=== PATIENT | female | born 1990 | race Caucasian/White ===

== ENCOUNTER → 2016-08-21 | Outpatient (CLI) | payer MEDICAID | LOC: MW.CHOBGYN 13:48 | PROVIDERS: ATTEND Nurse Practitioner Women's Health | DX: N92.6 Irregular menstruation, unspecified (principal) | CPT/HCPCS: 36415; 84702 ==

== ENCOUNTER → 2016-08-26 | Outpatient (CLI) | payer MEDICAID | LOC: MW.CHOBGYN 10:42 | PROVIDERS: ATTEND Nurse Practitioner Women's Health | DX: O26.899 Other specified pregnancy related conditions, unspecified trimester (principal); E53.8 Deficiency of other specified B group vitamins | CPT/HCPCS: 36415; 82607; 84702 ==

== ENCOUNTER 2017-08-19 06:33 | Inpatient (IN) | payer BC ==
[2017-08-19] MEDS ORDERED: Terbutaline 1 MG/ML SDV SUBCUT PRN (06:42)
[2017-08-19] MEDS ORDERED: Methylergonovine 0.2 MG/1 ML Amp IM PRN (06:42)
[2017-08-19] MEDS ORDERED: Lidocaine 1% 50 ML MDV INJECT PRN (06:42)
[2017-08-19] MEDS ORDERED: Tranexamic Acid 1,000 MG in Sodium Chloride 0.9% 100 ML IV PRN (06:42)
[2017-08-19] MEDS ORDERED: Water For Irrigation,Sterile 1,000 ML Container IRR PRN (06:42)
[2017-08-19] MEDS ORDERED: Sodium Chloride 0.9% 10 ML Syringe FLUSH PRN (06:42)
[2017-08-19] MEDS ORDERED: Butorphanol 1 MG/ML SDV IVPUSH PRN (06:42)
[2017-08-19] MEDS ORDERED: Carboprost Tromethamine 250 MCG/1 ML Amp IM PRN (06:42)
[2017-08-19] MEDS ORDERED: Misoprostol 200 MCG Tab PO PRN (06:42)
[2017-08-19] MEDS ORDERED: Sodium Chloride 0.9% 2.5 ML Syringe FLUSH PRN (06:42)
[2017-08-19] MEDS ORDERED: Lactated Ringers 1,000 ML IV SCH (06:45)
[2017-08-19] MEDS ORDERED: Oxytocin/0.9 % Sodium Chloride 30 UNIT/500 ML BAG IV SCH ×2 (06:45)
--- NOTE | 2017-08-19 08:21 | PCM.LDHP ---
L&D History of Present Illness - General Date of Service: 08/19/17 Admit Problem/Dx: Patient Status Order with Admit Dx/Problem 08/19/17 06:42 Patient Status [ADT] Routine Admission Diagnosis/Problem Admission Diagnosis/Problem 08/19/17 08:16 26 yo EDC by LMP 08/24/2017, making her 39 2/7, reported to be a girl. B+ , R-equivocal/ GBS neg. IOL due to history of rapid labor Source of Information: Patient History Limitations: Reports: No Limitations - History of Present Illness Improves with: Reports: None Worsens with: Reports: None Associated Symptoms: Reports: N - Related Data Allergies/Adverse Reactions: Allergies Allergy/AdvReac Type Severity Reaction Status Date / Time No Known Allergies Allergy Verified 08/02/13 09:39 Home Medications: Home Meds Vit W-Ca,Fe,FA(<1 mg) [ Vitamins] 1 each PO DAILY 08/19/17 [ History] Past Medical History - Past Health History Medical/Surgical History: Denies Medical/Surgical History HEENT History: Reports: Impaired Vision Genitourinary History: Reports: Renal Calculus [employer] History: Reports: , Spontaneous Musculoskeletal History: Reports: RA Hematologic History: Reports: Anemia - Infectious Disease History Infectious Disease History: Reports: Chicken Pox - Past Surgical History HEENT Surgical History: Reports: None Female Surgical History: Reports: None Social & Family History - Family History HEENT: Reports: Impaired Vision Respiratory: Reports: Asthma : Reports: Renal Calculus OBGYN: Reports: Musculoskeletal: Reports: Fibromyalgia, Osteoarthritis Endocrine/Metabolic: Reports: Diabetes, type II Other Endocrine/Metabolic Family History: Patient's grandmother and sister have had thyroidectomy surgery. Oncologic: Reports: Lung - Tobacco Use Smoking Status *Q: Never Smoker Years of Tobacco use: 5 Used Tobacco, but Quit: Yes Month/Year Tobacco Last Used: jan Second Hand Smoke Exposure: Yes - Alcohol Use Days Per Week of Alcohol Use: 0 - Recreational Drug Use Recreational Drug Use: No H&P Review of Systems - Review of Systems: Review Of Systems: See Below General: Reports: No Symptoms HEENT: Reports: No Symptoms Pulmonary: Reports: No Symptoms Cardiovascular: Reports: No Symptoms Gastrointestinal: Reports: No Symptoms Genitourinary: Reports: No Symptoms Musculoskeletal: Reports: No Symptoms Skin: Reports: No Symptoms Psychiatric: Reports: No Symptoms Neurological: Reports: No Symptoms Hematologic/Lymphatic: Reports: No Symptoms Immunologic: Reports: No Symptoms L&D Exam - Exam Exam: See Below - Vital Signs Weight: 156 kg - OB Specific Contraction Intensity: Mild Movement: Active Heart Tones: Present (150) Heart Tones per Min: 150 Heart Rate (FHR) Variability: Moderate (6-25 bmp) Presentation: Vertex Estimated Weight: 3300 - Francisco Score Francisco Score Cervix Position: Posterior Francisco Score Consistency: Soft Francisco Score Effacement: >80% Francisco Score Dilation: > 5 cm Francisco Score 's Station: -2 Francisco Score Total: 9 - Exam General: Alert, Oriented, Cooperative HEENT: Hearing Intact Lungs: Normal Respiratory Effort GI/Abdominal Exam: Soft, Non-Tender (good movement), No Organomegaly ( gravid) Rectal Exam: Deferred Genitourinary: Normal external exam, Normal bimanual exam, Cervical dilitation Back Exam: Normal Inspection, Full Range of Motion Extremities: Normal Inspection, Normal Range of Motion, Non-Tender, Normal Capillary Refill, Pedal Edema Skin: Warm, Dry, Intact Neurological: Cranial Nerves Intact, Reflexes Equal Bilateral, Strength Equal Bilateral, Normal Speech, Normal Tone Psychiatric: Alert, Normal Affect, Normal Mood - Patient Data Lab Results Last 24 hrs: Laboratory Results - last 24 hr 08/19/17 08/19/17 Range/Units 07:04 07:04 WBC 11.61 H (4.0-11.0) K/uL RBC 4.09 L (4.30-5.90) M/uL Hgb 8.6 L (12.0-16.0) g/dL Hct 28.6 L (36.0-46.0) % MCV 69.9 L (80.0-98.0) fL MCH 21.0 L (27.0-32.0) pg MCHC 30.1 L (31.0-37.0) g/dL RDW Std Deviation 42.4 (28.0-62.0) fl RDW Coeff of Oneal 17 H (11.0-15.0) % Plt Count 254 (150-400) K/uL MPV 9.90 (7.40-12.00) fL Nucleated RBC % 0.5 /100WBC Nucleated RBCs # 0 K/uL Blood Type B POSITIVE Antibody Screen NEGATIVE Result Diagrams: 08/19/17 07:04 - Problem List (1) Supervision of normal IUP (intrauterine ) in multigravida SNOMED Code(s): 001298284, 998846563, 044855078 ICD Code: Z34.80 - ENCOUNTER FOR SUPRVSN OF NORMAL , UNSP TRIMESTER Status: Acute Priority: High Current Visit: Yes Qualifiers: Trimester: third trimester Qualified Code(s): Z34.83 - Encounter for supervision of other normal , third trimester Problem List Initiated/Reviewed/Updated: Yes Orders Last 24hrs: Active Orders 24 hr Category Date Time Status Patient Status [ADT] Routine ADT 08/19/17 06:42 Active Bedrest Bathroom Privileges [RC] ASDIRECTED Care 08/19/17 06:42 Active Communication Order [RC] ASDIRECTED Care 08/19/17 06:42 Active Communication Order [RC] ASDIRECTED Care 08/19/17 06:42 Active Heart Tones [RC] CONTINUOUS Care 08/19/17 06:42 Active Non Stress Test [RC] PER UNIT ROUTINE Care 08/19/17 06:42 Active May Shower [RC] ASDIRECTED Care 08/19/17 06:42 Active Notify Provider [RC] PRN Care 08/19/17 06:42 Active Notify Provider [RC] PRN Care 08/19/17 06:42 Active Oxygen Therapy [RC] ASDIRECTED Care 08/19/17 06:42 Active Up ad Irina [RC] ASDIRECTED Care 08/19/17 06:42 Active Vaginal Exam [RC] PRN Care 08/19/17 06:42 Active Vaginal Exam [RC] PRN Care 08/19/17 06:42 Active Vital Signs [RC] PER UNIT ROUTINE Care 08/19/17 06:42 Active Vital Signs [RC] PER UNIT ROUTINE Care 08/19/17 06:42 Active Regular Diet [DIET] Diet 08/19/17 Lunch Active Butorphanol [Stadol] Med 08/19/17 06:42 Active 1 mg IVPUSH Q1H PRN Carboprost Tromethamine [Hemabate DS] Med 08/19/17 06:42 Active 250 mcg IM ASDIRECTED PRN Lactated Ringers [Ringers, Lactated] 1,000 ml Med 08/19/17 06:45 Active IV ASDIRECTED Lidocaine 1% [Xylocaine 1%] Med 08/19/17 06:42 Active 50 ml INJECT .ONCE PRN Methylergonovine [Methergine] Med 08/19/17 06:42 Active 0.2 mg IM ASDIRECTED PRN Misoprostol [Cytotec] Med 08/19/17 06:42 Active 200 mcg PO .ONCE PRN Oxytocin/0.9 % Sodium Chloride [Oxytocin 30 Unit/500 ML Med 08/19/17 06:45 Active -NS] 30 unit in 500 ml IV TITRATE Oxytocin/0.9 % Sodium Chloride [Oxytocin 30 Unit/500 ML Med 08/19/17 06:45 Active -NS] 30 unit in 500 ml IV TITRATE Sodium Chloride 0.9% [Saline Flush] [facility] 08/19/17 06:42 Active 10 ml FLUSH ASDIRECTED PRN Sodium Chloride 0.9% [Saline Flush] [facility] 08/19/17 06:42 Active 2.5 ml FLUSH ASDIRECTED PRN Terbutaline [Brethine] Med 08/19/17 06:42 Active 0.25 mg SUBCUT ASDIRECTED PRN Tranexamic Acid [Cyklokapron] 1,000 mg Med 08/19/17 06:42 Active Sodium Chloride 0.9% [Normal Saline] 100 ml IV ONETIME Water For Irrigation,Sterile [Sterile Water for Med 08/19/17 06:42 Active Irrigation] 1,000 ml IRR ASDIRECTED PRN Scalp Electrode [WOMSER] Per Unit Routine Ot 08/19/17 06:42 Ordered Medication Administration Instruction [OM.PC] Q3H Oth 08/19/17 06:45 Ordered Peripheral IV Insertion Adult [OM.PC] Routine Oth 08/19/17 06:42 Ordered Resuscitation Status Routine Resus Stat 08/19/17 06:42 Ordered Medication Orders Butorphanol Tartrate (Stadol) 1 mg IVPUSH Q1H PRN PRN Reason: Pain Carboprost Tromethamine (Hemabate Ds) 250 mcg IM ASDIRECTED PRN PRN Reason: Post Hemorrhage Lactated Ringer's (Ringers, Lactated) 1,000 mls @ 150 mls/hr IV ASDIRECTED JB Oxytocin/Sodium Chloride (Oxytocin 30 Unit/500 Ml-Ns) 30 unit in 500 mls @ 250 mls/hr IV TITRATE JB Oxytocin/Sodium Chloride (Oxytocin 30 Unit/500 Ml-Ns) 30 unit in 500 mls @ 2 mls/hr IV TITRATE JB; Protocol Tranexamic Acid 1,000 mg/ (Sodium Chloride) 110 mls @ 660 mls/hr IV ONETIME PRN PRN Reason: Bleeding Lidocaine HCl (Xylocaine 1%) 50 ml INJECT .ONCE PRN PRN Reason: Laceration repair Methylergonovine Maleate (Methergine) 0.2 mg IM ASDIRECTED PRN PRN Reason: Post Hemorrhage Misoprostol (Cytotec) 200 mcg PO .ONCE PRN PRN Reason: Post Hemorrhage Sodium Chloride (Saline Flush) 10 ml FLUSH ASDIRECTED PRN PRN Reason: Keep Vein Open Sodium Chloride (Saline Flush) 2.5 ml FLUSH ASDIRECTED PRN PRN Reason: Keep Vein Open Sterile Water (Sterile Water For Irrigation) 1,000 ml IRR ASDIRECTED PRN PRN Reason: delivery Terbutaline Sulfate (Brethine) 0.25 mg SUBCUT ASDIRECTED PRN PRN Reason: Tacysystole Assessment/Plan Comment:: IOL A: 26 yo EDC by LMP 08/24/2017, making her 39 2/7, reported to be a girl. B+, R-equivocal/ GBS neg. IOL due to history of rapid labor P: Admit to L&D, AROM bloody fluid, will start pitocin prn, anticipate . Dr Mansfield updated
[2017-08-19] MEDS ORDERED: Benzocaine/Menthol 20%-0.5% Spray 78 GM Cannister TOP PRN (14:23)
[2017-08-19] MEDS ORDERED: Lanolin 100% Cream 7 GM Tube TOP PRN (14:23)
[2017-08-19] MEDS ORDERED: Docusate Sodium 100 MG Cap PO PRN (14:23)
[2017-08-19] MEDS ORDERED: Ibuprofen 400 MG Tab PO PRN (14:23)
[2017-08-19] MEDS ORDERED: Bisacodyl 10 MG Supp RECTAL PRN (14:23)
[2017-08-19] MEDS ORDERED: Acetaminophen 500 MG Tab PO PRN ×2 (14:23)
[2017-08-19] MEDS ORDERED: Witch Hazel Medicated Pads 40/Jar TOP PRN (14:23)
[2017-08-19] MEDS ORDERED: oxyCODONE 5 MG Tab PO PRN (14:23)
--- NOTE | 2017-08-19 14:31 | PCM.DEL ---
L & D Note - General Info Date of Service: 08/19/17 Mother's Due Date: 08/24/17 - Delivery Note Labor: Induced by ARM Delivery Outcome: Livebirth Infant Delivery Method: Spontaneous Vaginal Delivery-Single Delivery Mode: Spontaneous Presentation: Vertex Nuchal Cord: None Anesthesia Type: None Amniotic Fluid Description: Clear Episiotomy Type: None Laceration: None Placenta: Intact, Spontaneous Cord: 3 Vessels Estimated Blood Loss: 200 Resuscitation Needed: No Score 1 min: 8 Score 5 min: 9 Second Stage Interventions: Reports: Pushing, Pulls Own Legs Back Delivery Comments (Free Text/Narrative):: of viable female over intact perineum. Head delivered with good pushing, shoulder and body followed with gentle traction. to mother abd with spont cry, RN at for eval. Delayed cord clapping. Pitocin to IVF. Cord clamped x2 and cut by FOB. Cord blood collected. Placenta delivered grossly intact. EBL 200cc, APGARS 8/9, Wt: 8lb 7oz. MOther and baby bonding well for recovery. Induction Criteria - Francisco Score Francisco Score Dilation: > 5 cm Francisco Score Effacement: >80% Francisco Score Infant's Station: -2 Francisco Score Consistency: Soft Francisco Score Cervix Position: Posterior Francisco Score Total: 9 Francisco Score Presenting Part: Reports: Cephalic - Induction Gestational Age >/= 39 wks: Yes Estimated Pelvis: Reports: Adequate Reassuring Monitoring Strip: Yes Absence of Tachy Systole: Yes - General Info Date of Service: 08/19/17 Admission Dx/Problem (Free Text): Patient Status Order with Admit Dx/Problem 08/19/17 06:42 Patient Status [ADT] Routine Admission Diagnosis/Problem Admission Diagnosis/Problem 08/19/17 08:16 26 yo EDC by LMP 08/24/2017, making her 39 2/7, reported to be a girl. B+ , R-equivocal/ GBS neg. IOL due to history of rapid labor Functional Status: Reports: Pain Controlled, Tolerating Diet - Review of Systems General: Reports: No Symptoms HEENT: Reports: No Symptoms Pulmonary: Reports: No Symptoms Cardiovascular: Reports: No Symptoms Gastrointestinal: Reports: No Symptoms Genitourinary: Reports: No Symptoms Musculoskeletal: Reports: No Symptoms Skin: Reports: No Symptoms Neurological: Reports: No Symptoms Psychiatric: Reports: No Symptoms - Patient Data Weight - Most Recent: 156 kg Lab Results Last 24 Hours: Laboratory Results - last 24 hr 08/19/17 08/19/17 Range/Units 07:04 07:04 WBC 11.61 H (4.0-11.0) K/uL RBC 4.09 L (4.30-5.90) M/uL Hgb 8.6 L (12.0-16.0) g/dL Hct 28.6 L (36.0-46.0) % MCV 69.9 L (80.0-98.0) fL MCH 21.0 L (27.0-32.0) pg MCHC 30.1 L (31.0-37.0) g/dL RDW Std Deviation 42.4 (28.0-62.0) fl RDW Coeff of Oneal 17 H (11.0-15.0) % Plt Count 254 (150-400) K/uL MPV 9.90 (7.40-12.00) fL Nucleated RBC % 0.5 /100WBC Nucleated RBCs # 0 K/uL Blood Type B POSITIVE Antibody Screen NEGATIVE Med Orders - Current: Current Medications Acetaminophen (Tylenol Extra Strength) 500 mg PO Q4H PRN PRN Reason: Pain Acetaminophen (Tylenol Extra Strength) 1,000 mg PO Q4H PRN PRN Reason: Pain Benzocaine/Menthol (Dermoplast Pain Relief 20%-0.5% [place]) 78 gm TOP ASDIRECTED PRN PRN Reason: Perineal Comfort Measure Bisacodyl (Dulcolax) 10 mg RECTAL .ONCE PRN PRN Reason: Constipation Docusate Sodium (Colace) 100 mg PO BID PRN PRN Reason: Constipation Emollient Ointment (Lansinoh Hpa) 0 gm TOP ASDIRECTED PRN PRN Reason: Sore Nipples Ibuprofen (Motrin) 400 mg PO Q4H PRN PRN Reason: Pain Ibuprofen (Motrin) 800 mg PO Q6H PRN PRN Reason: Pain Oxycodone HCl (Oxycodone) 5 mg PO Q2H PRN PRN Reason: Pain Witch Jihan (Tucks) 1 pad TOP ASDIRECTED PRN PRN Reason: comfort care Discontinued Medications Butorphanol Tartrate (Stadol) 1 mg IVPUSH Q1H PRN PRN Reason: Pain Carboprost Tromethamine (Hemabate Ds) 250 mcg IM ASDIRECTED PRN PRN Reason: Post Hemorrhage Lactated Ringer's (Ringers, Lactated) 1,000 mls @ 150 mls/hr IV ASDIRECTED JB Last Admin: 08/19/17 10:16 Dose: 150 mls/hr Oxytocin/Sodium Chloride (Oxytocin 30 Unit/500 Ml-Ns) 30 unit in 500 mls @ 250 mls/hr IV TITRATE JB Oxytocin/Sodium Chloride (Oxytocin 30 Unit/500 Ml-Ns) 30 unit in 500 mls @ 2 mls/hr IV TITRATE JB; Protocol Last Titration: 08/19/17 14:14 Dose: 500 munits/min, 500 mls/hr Tranexamic Acid 1,000 mg/ (Sodium Chloride) 110 mls @ 660 mls/hr IV ONETIME PRN PRN Reason: Bleeding Lidocaine HCl (Xylocaine 1%) 50 ml INJECT .ONCE PRN PRN Reason: Laceration repair Methylergonovine Maleate (Methergine) 0.2 mg IM ASDIRECTED PRN PRN Reason: Post Hemorrhage Misoprostol (Cytotec) 200 mcg PO .ONCE PRN PRN Reason: Post Hemorrhage Sodium Chloride (Saline Flush) 10 ml FLUSH ASDIRECTED PRN PRN Reason: Keep Vein Open Sodium Chloride (Saline Flush) 2.5 ml FLUSH ASDIRECTED PRN PRN Reason: Keep Vein Open Sterile Water (Sterile Water For Irrigation) 1,000 ml IRR ASDIRECTED PRN PRN Reason: delivery Terbutaline Sulfate (Brethine) 0.25 mg SUBCUT ASDIRECTED PRN PRN Reason: Tacysystole - Exam General: Alert, Oriented, Cooperative Lungs: Normal Respiratory Effort GI/Abdominal Exam: Soft (Female) Exam: Normal External Exam, Normal Bimanual Exam, Vaginal Bleeding Back Exam: Full Range of Motion Extremities: Normal Inspection, Normal Range of Motion, Non-Tender, Normal Capillary Refill, Pedal Edema Skin: Warm, Dry, Intact Wound/Incisions: Healing Well Neurological: No New Focal Deficit, Normal Speech, Normal Tone Psy/Mental Status: Alert, Normal Affect, Normal Mood - Problem List & Annotations (1) Supervision of normal IUP (intrauterine ) in multigravida SNOMED Code(s): 762652442, 403420879, 472312132 Code(s): Z34.80 - ENCOUNTER FOR SUPRVSN OF NORMAL , UNSP TRIMESTER Status: Acute Priority: High Current Visit: Yes Qualifiers: Trimester: third trimester Qualified Code(s): Z34.83 - Encounter for supervision of other normal , third trimester (2) (normal spontaneous vaginal delivery) SNOMED Code(s): 56731588 Code(s): O80 - ENCOUNTER FOR FULL-TERM UNCOMPLICATED DELIVERY Status: Acute Priority: High Current Visit: Yes - Problem List Review Problem List Initiated/Reviewed/Updated: Yes - My Orders Last 24 Hours: My Active Orders 08/19/17 06:42 May Shower [RC] ASDIRECTED Notify Provider [RC] PRN Oxygen Therapy [RC] ASDIRECTED Vital Signs [RC] PER UNIT ROUTINE 08/19/17 14:23 May Shower [RC] ASDIRECTED Up ad Irina [RC] ASDIRECTED Vital Signs [RC] PER UNIT ROUTINE Acetaminophen [Tylenol Extra Strength] 1,000 mg PO Q4H PRN Acetaminophen [Tylenol Extra Strength] 500 mg PO Q4H PRN Benzocaine/Menthol [Dermoplast Pain Relief 20%-0.5% [place]] 78 gm TOP ASDIRECTED PRN Bisacodyl [Dulcolax] 10 mg RECTAL .ONCE PRN Docusate Sodium [Colace] 100 mg PO BID PRN Ibuprofen [Motrin] 400 mg PO Q4H PRN Ibuprofen [Motrin] 800 mg PO Q6H PRN Lanolin [Lansinoh HPA] See Dose Instructions TOP ASDIRECTED PRN Witch Jihan [Tucks] 1 pad TOP ASDIRECTED PRN oxyCODONE 5 mg PO Q2H PRN Assess Lochia [WOMSER] Per Unit Routine Assess Uterine Involution [WOMSER] Per Unit Routine Peripheral IV Discontinue [OM.PC] Routine Resuscitation Status Routine 08/19/17 14:24 Patient Status [ADT] Routine 08/19/17 Dinner Regular Diet [DIET] - Plan Plan:: IOL A: 26 yo EDC by LMP 08/24/2017, making her 39 2/7, reported to be a girl. B+, R-equivocal/ GBS neg. IOL due to history of rapid labor P: Admit to L&D, AROM bloody fluid, will start pitocin prn, anticipate . Dr Mansfield updated Delivery A: of viable female, APGARS 8/9, Wt 8lb 7oz, EBL 200cc, intact, stable. bonding well P: routine pp plan of care
[2017-08-19] MEDS: Ibuprofen 800 MG Tab PO PRN ×2 (15:20→22:30)
--- NOTE | 2017-08-20 08:18 | PCM.DCSUM1 ---
Discharge Summary - Hospital Course Free Text/Narrative:: Discharge home with . Follow up in 6 weeks for post . Come sooner if needed. - Discharge Data Discharge Date: 08/20/17 Discharge Disposition: Home, Self-Care 01 Condition: Good - Discharge Diagnosis/Problem(s) (1) Supervision of normal IUP (intrauterine ) in multigravida SNOMED Code(s): 330578129, 742959321, 253540139 ICD Code: Z34.80 - ENCOUNTER FOR SUPRVSN OF NORMAL , UNSP TRIMESTER Status: Acute Priority: High Current Visit: Yes Qualifiers: Trimester: third trimester Qualified Code(s): Z34.83 - Encounter for supervision of other normal , third trimester (2) (normal spontaneous vaginal delivery) SNOMED Code(s): 42093378 ICD Code: O80 - ENCOUNTER FOR FULL-TERM UNCOMPLICATED DELIVERY Status: Acute Priority: High Current Visit: Yes - Patient Instructions Diet: Usual Diet as Tolerated Activity: As Tolerated, No Strenuous Activities, Rest and Relax Today Driving: May Drive Today Showering/Bathing: May Shower Wound/Incision Care: Keep Operative Site/Wound Site Clean and Dry Notify Provider of: Fever, Increased Pain, Swelling and Redness, Nausea and/or Vomiting Other/Special Instructions: Discharge home with . Follow up in 6 weeks for post . Come sooner if needed. - Discharge Plan Home Medications: Home Meds Vit W-Ca,Fe,FA(<1 mg) [ Vitamins] 1 each PO DAILY 08/19/17 [ History] - General Info Date of Service: 08/20/17 Admission Dx/Problem (Free Text: Patient Status Order with Admit Dx/Problem 08/19/17 06:42 Patient Status [ADT] Routine Admission Diagnosis/Problem Admission Diagnosis/Problem 08/19/17 08:16 26 yo EDC by LMP 08/24/2017, making her 39 2/, reported to be a girl. B+ , R-equivocal/ GBS neg. IOL due to history of rapid labor Functional Status: Reports: Pain Controlled, Tolerating Diet, Ambulating, Urinating - Review of Systems General: Reports: No Symptoms HEENT: Reports: No Symptoms Pulmonary: Reports: No Symptoms Cardiovascular: Reports: No Symptoms Gastrointestinal: Reports: No Symptoms Genitourinary: Reports: No Symptoms Musculoskeletal: Reports: No Symptoms Skin: Reports: No Symptoms Neurological: Reports: No Symptoms Psychiatric: Reports: No Symptoms - Patient Data Vitals - Most Recent: Last Vital Signs Temp 36.0 C 08/20/17 05:30 Pulse 89 08/20/17 05:30 Resp 16 08/20/17 05:30 BP 110/67 08/20/17 05:30 Pulse Ox 99 08/20/17 05:30 Weight - Most Recent: 156 kg Med Orders - Current: Current Medications Acetaminophen (Tylenol Extra Strength) 500 mg PO Q4H PRN PRN Reason: Pain Acetaminophen (Tylenol Extra Strength) 1,000 mg PO Q4H PRN PRN Reason: Pain Benzocaine/Menthol (Dermoplast Pain Relief 20%-0.5% [place]) 78 gm TOP ASDIRECTED PRN PRN Reason: Perineal Comfort Measure Last Admin: 08/19/17 15:20 Dose: 78 gm Bisacodyl (Dulcolax) 10 mg RECTAL .ONCE PRN PRN Reason: Constipation Docusate Sodium (Colace) 100 mg PO BID PRN PRN Reason: Constipation Emollient Ointment (Lansinoh Hpa) 0 gm TOP ASDIRECTED PRN PRN Reason: Sore Nipples Last Admin: 08/19/17 22:21 Dose: 1 tube Ibuprofen (Motrin) 400 mg PO Q4H PRN PRN Reason: Pain Ibuprofen (Motrin) 800 mg PO Q6H PRN PRN Reason: Pain Last Admin: 08/19/17 22:30 Dose: 800 mg Oxycodone HCl (Oxycodone) 5 mg PO Q2H PRN PRN Reason: Pain Witch Jihan (Tucks) 1 pad TOP ASDIRECTED PRN PRN Reason: comfort care Last Admin: 08/19/17 15:21 Dose: 1 pad Discontinued Medications Butorphanol Tartrate (Stadol) 1 mg IVPUSH Q1H PRN PRN Reason: Pain Carboprost Tromethamine (Hemabate Ds) 250 mcg IM ASDIRECTED PRN PRN Reason: Post Hemorrhage Lactated Ringer's (Ringers, Lactated) 1,000 mls @ 150 mls/hr IV ASDIRECTED JB Last Admin: 08/19/17 10:16 Dose: 150 mls/hr Oxytocin/Sodium Chloride (Oxytocin 30 Unit/500 Ml-Ns) 30 unit in 500 mls @ 250 mls/hr IV TITRATE JB Oxytocin/Sodium Chloride (Oxytocin 30 Unit/500 Ml-Ns) 30 unit in 500 mls @ 2 mls/hr IV TITRATE JB; Protocol Last Titration: 08/19/17 14:14 Dose: 500 munits/min, 500 mls/hr Tranexamic Acid 1,000 mg/ (Sodium Chloride) 110 mls @ 660 mls/hr IV ONETIME PRN PRN Reason: Bleeding Lidocaine HCl (Xylocaine 1%) 50 ml INJECT .ONCE PRN PRN Reason: Laceration repair Methylergonovine Maleate (Methergine) 0.2 mg IM ASDIRECTED PRN PRN Reason: Post Hemorrhage Misoprostol (Cytotec) 200 mcg PO .ONCE PRN PRN Reason: Post Hemorrhage Sodium Chloride (Saline Flush) 10 ml FLUSH ASDIRECTED PRN PRN Reason: Keep Vein Open Sodium Chloride (Saline Flush) 2.5 ml FLUSH ASDIRECTED PRN PRN Reason: Keep Vein Open Sterile Water (Sterile Water For Irrigation) 1,000 ml IRR ASDIRECTED PRN PRN Reason: delivery Terbutaline Sulfate (Brethine) 0.25 mg SUBCUT ASDIRECTED PRN PRN Reason: Tacysystole - Exam General: Reports: Alert, Oriented, Cooperative, No Acute Distress Lungs: Reports: Clear to Auscultation, Normal Respiratory Effort Cardiovascular: Reports: Regular Rate, Regular Rhythm, No Murmurs GI/Abdominal Exam: Soft, Non-Tender (Female) Exam: Vaginal Bleeding Rectal (Female) Exam: Deferred Back Exam: Reports: Normal Inspection, Full Range of Motion Extremities: Normal Inspection, Normal Range of Motion, Non-Tender, Normal Capillary Refill, Pedal Edema (looks better than yesterday) Skin: Reports: Warm, Dry, Intact Wound/Incisions: Reports: Healing Well Neurological: Reports: No New Focal Deficit, Normal Speech, Normal Tone Psy/Mental Status: Reports: Alert, Normal Affect, Normal Mood
[2017-08-20] MEDS ORDERED: Measles, Mumps & Rubella Vaccine 0.5 ML SDV SUBCUT ONE (08:19)
[2017-08-20] MEDS: Ibuprofen 800 MG Tab PO PRN (09:26)
[2017-08-20 09:46] VITALS: BP 118/71
== END 2017-08-20 17:10 | disposition home or self-care (01) | DRG 560 ==
LOC: MW.OBCHECK 06:33 → MW.OB 06:35 → MW.OBCHECK 06:42 → MW.OB 06:42 → OBSVTOIN 14:10
PROVIDERS: ADMIT Obstetrics & Gynecology; ATTEND Obstetrics & Gynecology
PROC: 10E0XZZ Delivery of Products of Conception, External Approach (ICD-10-PCS; principal; 2017-08-19)
PROC: 10907ZC Drainage of Amniotic Fluid, Therapeutic from Products of Conception, Via Natural or Artificial Opening (ICD-10-PCS; 2017-08-19)
DX: O80 Encounter for full-term uncomplicated delivery (principal); Z3A.39 39 weeks gestation of pregnancy; Z37.0 Single live birth
CPT/HCPCS: 36415; 59025; 59409; 85027; 86850; 86900; 86901; 90471; 90707; A9270-GY; J2590; J7120

== ENCOUNTER 2018-07-29 00:21 | Emergency (ER) | payer BC ==
--- NOTE | 2018-07-29 00:42 | EDM.PDOC ---
ED HPI GENERAL MEDICAL PROBLEM - General Stated Complaint: 18WKS , BODY FEELS HOT AND RASH ON STOMACH Time Seen by Provider: 07/29/18 00:29 - History of Present Illness INITIAL COMMENTS - FREE TEXT/NARRATIVE: HISTORY AND PHYSICAL: History of present illness: The patient is a 27-year-old female who is approximately 18 weeks and following with our nurse decommissioning well site manager Lore Barney and presents with concerns about a rash on her lower abdomen that started yesterday. The patient says she was on an antibiotic, cephalexin, for a UTI and was just changed to Macrodantin yesterday I Lore. She said that she noticed the rash before the change in the antibiotic and she was concerned so she came for evaluation. She says that the nurse decommissioning well site manager is aware of the rash but she has not seen it. The patient says the rash is not itchy and it is only located in her lower pelvic/abdominal area and no place else on her body. She's had no systemic complaints of fever chills chest pain shortness of breath sore throat vomiting or diarrhea and she is eating and drinking normally. She did not try any [id number] Benadryl or any topicals to help with the rash. The patient does wear her leggings/pants underneath her gravid abdomen in the same distribution of where this rash is. She says that it had some slight burning this evening which is why she came in. She's having no vaginal bleeding and no abdominal pain. Review of systems: As per history of present illness and below otherwise all systems reviewed and negative. Past medical history: As per history of present illness and as reviewed below otherwise noncontributory. Surgical history: As per history of present illness and as reviewed below otherwise noncontributory. Social history: No reported history of drug or alcohol abuse. Family history: As per history of present illness and as reviewed below otherwise noncontributory. Physical exam: HEENT: Atraumatic, normocephalic, pupils reactive, negative for conjunctival pallor or scleral icterus, mucous membranes moist, throat clear, neck supple, nontender, trachea midline. There is no oropharyngeal swelling, lip tongue or facial swelling Lungs: Clear to auscultation, breath sounds equal bilaterally, chest nontender. Heart: S1S2, regular rate and rhythm no overt murmurs Abdomen: Soft, nondistended, nontender. Gravid uterus to just below the umbilicus and nontender Pelvis: Stable nontender. Genitourinary: Deferred. Rectal: Deferred. Extremities: Atraumatic, full range of motion without defects or deficits Neurovascular unremarkable. Neuro: Awake, alert, oriented. Cranial nerves II through XII unremarkable. Cerebellum unremarkable. Motor and sensory unremarkable throughout. Exam nonfocal. Skin: Turgor is normal , there is a rash located in her lower abdominal/pelvic area along the distribution of where she is currently wearing her sweatpants waistband and the remainder of the abdomen trunk extremities back face is without any rashes or lesions. The rash are small macules which are not reddened and there is no vesicular component and they do not awilda Diagnostics: [] Therapeutics: heart tones 155 per nursing After I left the room the patient told nursing that the sweatpants she is currently wearing and the one she wore yesterday or brand-new and she did not wash them prior to wearing them and now she is worried that might of caused the rash. She was advised to wash these as well as to use [id number] Benadryl as she chooses for any itching and gwcx-xbo-qevokse hydrocortisone on the small areas of the rash. I also stressed the need to follow-up with Lore the nurse practitioner. I reassured the patient that I do not think that this is a reaction to her new antibiotic and that she should continue taking it Impression: Contact dermatitis, second trimester stable Definitive disposition and diagnosis as appropriate pending reevaluation and review of above. 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 Musculoskeletal History: Reports: RA Hematologic History: Reports: Anemia - Infectious Disease History Infectious Disease History: Reports: Chicken Pox - Past Surgical History HEENT Surgical History: Reports: None Female Surgical History: Reports: None Social & Family History - Family History HEENT: Reports: Impaired Vision Respiratory: Reports: Asthma : Reports: Renal Calculus OBGYN: Reports: Musculoskeletal: Reports: Fibromyalgia, Osteoarthritis Endocrine/Metabolic: Reports: Diabetes, type II Other Endocrine/Metabolic Family History: Patient's grandmother and sister have had thyroidectomy surgery. Oncologic: Reports: Lung - Tobacco Use Smoking Status *Q: Never Smoker - Caffeine Use Caffeine Use: Reports: Soda - Recreational Drug Use Recreational Drug Use: No ED ROS GENERAL - Review of Systems Review Of Systems: ROS reveals no pertinent complaints other than HPI. ED EXAM, GENERAL - Physical Exam Exam: See Below (See dictation) Course - Vital Signs Last Recorded V/S: Last Vital Signs Temp 36.3 C 07/29/18 00:30 Pulse 84 07/29/18 00:30 Resp 18 07/29/18 00:30 BP 113/69 07/29/18 00:30 Pulse Ox 99 07/29/18 00:30 - Orders/Labs/Meds Orders: Active Orders 24 hr Category Date Time Status Communication Order [RC] STAT Care 07/29/18 00:27 Active Departure - Departure Time of Disposition: 00:42 Disposition: Home, Self-Care 01 Condition: Good Clinical Impression: Second trimester Contact dermatitis Qualifiers: Contact dermatitis type: unspecified Contact dermatitis trigger: unspecified trigger Qualified Code(s): L25.9 - Unspecified contact dermatitis, unspecified cause - Discharge Information Referrals: PCP,None [Primary Care Provider] - Additional Instructions: The following information is given to patients seen in the emergency department who are being discharged to home. This information is to outline your options for follow-up care. We provide all patients seen in our emergency department with a follow-up referral. The need for follow-up, as well as the timing and circumstances, are variable depending upon the specifics of your emergency department visit. If you don't have a primary care physician on staff, we will provide you with a referral. We always advise you to contact your personal physician following an emergency department visit to inform them of the circumstance of the visit and for follow-up with them and/or the need for any referrals to a consulting specialist. The emergency department will also refer you to a specialist when appropriate. This referral assures that you have the opportunity for followup care with a specialist. All of these measure are taken in an effort to provide you with optimal care, which includes your followup. Under all circumstances we always encourage you to contact your private physician who remains a resource for coordinating your care. When calling for followup care, please make the office aware that this follow-up is from your recent emergency room visit. If for any reason you are refused follow-up, please contact the [facility] emergency department at and ask to speak to the emergency department charge nurse. [facility] [address] [address] Please do not wear clothing that is new until you have wash them as you may be sensitive to irritants that may be present in the closed. Please use over-the- counter hydrocortisone and small areas on the rash as we discussed. Continue your antibiotic that you're given from the nurse decommissioning well site manager and please contact the nurse decommissioning well site manager in the morning to let her know about this ER visit and our care plan. Return to ER as needed and as discussed - My Orders Last 24 Hours: My Active Orders 07/29/18 00:27 Communication Order [RC] STAT - Assessment/Plan Last 24 Hours: My Active Orders 07/29/18 00:27 Communication Order [RC] STAT
[2018-07-29 00:56] VITALS: BP 105/70
== END 2018-07-29 00:55 | disposition home or self-care (01) ==
LOC: MW.ED 00:21
DX: O99.712 Diseases of the skin and subcutaneous tissue complicating pregnancy, second trimester (principal); L25.9 Unspecified contact dermatitis, unspecified cause; Z3A.18 18 weeks gestation of pregnancy
CPT/HCPCS: 99282

== ENCOUNTER → 2018-11-19 10:45 | Emergency (ER) | payer BC | END | disposition left against medical advice (07) | LOC: MW.ED 10:45 | DX: Z53.21 Procedure and treatment not carried out due to patient leaving prior to being seen by health care provider (principal) ==

== ENCOUNTER 2018-12-19 01:49 | Inpatient (IN) | payer BC ==
[2018-12-19] MEDS ORDERED: Methylergonovine 0.2 MG/1 ML Amp IM PRN (02:04)
[2018-12-19] MEDS ORDERED: Sodium Chloride 0.9% 2.5 ML Syringe FLUSH PRN (02:04)
[2018-12-19] MEDS ORDERED: Sodium Chloride 0.9% 10 ML SDV IV PRN (02:04)
[2018-12-19] MEDS ORDERED: Carboprost Tromethamine 250 MCG/1 ML Amp IM PRN (02:04)
[2018-12-19] MEDS ORDERED: Lidocaine 1% 50 ML MDV INJECT PRN (02:04)
[2018-12-19] MEDS ORDERED: Water For Irrigation,Sterile 1,000 ML Container IRR PRN (02:04)
[2018-12-19] MEDS ORDERED: Sodium Chloride 0.9% 10 ML Syringe FLUSH PRN (02:04)
[2018-12-19] MEDS ORDERED: Butorphanol 1 MG/ML SDV IVPUSH PRN (02:04)
[2018-12-19] MEDS ORDERED: Nalbuphine 10 MG/1 ML Vial IVPUSH PRN (02:04)
[2018-12-19] MEDS ORDERED: Misoprostol 200 MCG Tab PO PRN (02:04)
[2018-12-19] MEDS ORDERED: Tranexamic Acid 1,000 MG in Sodium Chloride 0.9% 100 ML IV PRN (02:04)
--- NOTE | 2018-12-19 02:09 | PCM.LDHP ---
L&D History of Present Illness - General Date of Service: 12/19/18 Admit Problem/Dx: Patient Status Order with Admit Dx/Problem 12/19/18 02:04 Patient Status [ADT] Routine Admission Diagnosis/Problem Admission Diagnosis/Problem Source of Information: Patient History Limitations: Reports: No Limitations - History of Present Illness Improves with: Reports: None Worsens with: Reports: None Associated Symptoms: Reports: N - Related Data Allergies/Adverse Reactions: Allergies Allergy/AdvReac Type Severity Reaction Status Date / Time No Known Allergies Allergy Verified 07/29/18 00:36 Home Medications: Home Meds . 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 Musculoskeletal History: Reports: RA Hematologic History: Reports: Anemia - Infectious Disease History Infectious Disease History: Reports: Chicken Pox - Past Surgical History HEENT Surgical History: Reports: None Female Surgical History: Reports: None Social & Family History - Family History Family Medical History: Noncontributory HEENT: Reports: Impaired Vision Respiratory: Reports: Asthma : Reports: Renal Calculus OBGYN: Reports: Musculoskeletal: Reports: Fibromyalgia, Osteoarthritis Endocrine/Metabolic: Reports: Diabetes, type II Other Endocrine/Metabolic Family History: Patient's grandmother and sister have had thyroidectomy surgery. Oncologic: Reports: Lung - Caffeine Use Caffeine Use: Reports: Soda H&P Review of Systems - Review of Systems: Review Of Systems: See Below General: Reports: No Symptoms HEENT: Reports: No Symptoms Pulmonary: Reports: No Symptoms Cardiovascular: Reports: No Symptoms Gastrointestinal: Reports: No Symptoms Genitourinary: Reports: No Symptoms Musculoskeletal: Reports: No Symptoms Skin: Reports: No Symptoms Psychiatric: Reports: No Symptoms Neurological: Reports: No Symptoms Hematologic/Lymphatic: Reports: No Symptoms Immunologic: Reports: No Symptoms L&D Exam - Exam Exam: See Below - Vital Signs Weight: 70.307 kg - OB Specific Contraction Intensity: Moderate Movement: Active Heart Tones: Present Presentation: Vertex - Francisco Score Francisco Score Cervix Position: Anterior Francisco Score Consistency: Soft Francisco Score Effacement: >80% Francisco Score Dilation: > 5 cm Francisco Score Infant's Station: -2 Francisco Score Total: 11 - Exam General: Alert, Oriented HEENT: PERRLA, Conjunctiva Clear, EACs Clear, EOMI, Hearing Intact, Mucosa Moist & [place], Nares Patent, Normal Nasal Septum, Posterior Pharynx Clear, TMs Clear Neck: Supple, Trachea Midline Lungs: Clear to Auscultation, Normal Respiratory Effort Cardiovascular: Regular Rate, Regular Rhythm GI/Abdominal Exam: Normal Bowel Sounds, Soft, Non-Tender, No Organomegaly, No Distention, No Abnormal Bruit, No Mass, Pelvis Stable Rectal Exam: Normal Exam, Normal Rectal Tone Genitourinary: Normal external exam, Normal bimanual exam, Normal speculum exam Back Exam: Normal Inspection, Full Range of Motion Extremities: Normal Inspection, Normal Range of Motion, Non-Tender, No Pedal Edema, Normal Capillary Refill Skin: Warm, Dry, Intact Neurological: Cranial Nerves Intact, Reflexes Equal Bilateral Psychiatric: Alert, Normal Affect, Normal Mood Problem List Initiated/Reviewed/Updated: Yes Orders Last 24hrs: Active Orders 24 hr Category Date Time Status Patient Status [ADT] Routine ADT 12/19/18 02:04 Active Heart Tones [RC] CONTINUOUS Care 12/19/18 02:04 Active Non Stress Test [RC] PER UNIT ROUTINE Care 12/19/18 02:04 Active May Shower [RC] ASDIRECTED Care 12/19/18 02:04 Active Notify Provider [RC] PRN Care 12/19/18 02:04 Active Up ad Irina [RC] ASDIRECTED Care 12/19/18 02:04 Active Vaginal Exam [RC] PRN Care 12/19/18 02:04 Active Vital Signs [RC] PER UNIT ROUTINE Care 12/19/18 02:04 Active CBC W/O DIFF,HEMOGRAM [HEME] Routine Lab 12/19/18 02:04 Ordered TYPE AND SCREEN [BBK] Routine Lab 12/19/18 02:04 Ordered Butorphanol [Stadol] Med 12/19/18 02:04 Ordered 1 mg IVPUSH Q1H PRN Carboprost Tromethamine [Hemabate DS] Med 12/19/18 02:04 Ordered 250 mcg IM ASDIRECTED PRN Lactated Ringers [Ringers, Lactated] 1,000 ml Med 12/19/18 02:15 Ordered IV ASDIRECTED Lidocaine 1% [Xylocaine 1%] Med 12/19/18 02:04 Ordered 50 ml INJECT ONETIME PRN Methylergonovine [Methergine] Med 12/19/18 02:04 Ordered 0.2 mg IM ASDIRECTED PRN Nalbuphine [Nubain] Med 12/19/18 02:04 Ordered 10 mg IVPUSH Q1H PRN Oxytocin/0.9 % Sodium Chloride [Oxytocin 30 Unit/500 ML Med 12/19/18 02:15 Ordered -NS] 30 unit in 500 ml IV TITRATE Sodium Chloride 0.9% [Normal Saline] Med 12/19/18 02:04 Ordered 10 ml IV ASDIRECTED PRN Sodium Chloride 0.9% [Saline Flush] Med 12/19/18 02:04 Ordered 10 ml FLUSH ASDIRECTED PRN Sodium Chloride 0.9% [Saline Flush] Med 12/19/18 02:04 Ordered 2.5 ml FLUSH ASDIRECTED PRN Tranexamic Acid [Cyklokapron] 1,000 mg Med 12/19/18 02:04 Ordered Sodium Chloride 0.9% [Normal Saline] 100 ml IV ONETIME Water For Irrigation,Sterile [Sterile Water for Med 12/19/18 02:04 Ordered Irrigation] 1,000 ml IRR ASDIRECTED PRN miSOPROStol [Cytotec] Med 12/19/18 02:04 Ordered 200 mcg PO ONETIME PRN Scalp Electrode [WOMSER] Per Unit Routine Oth 12/19/18 02:04 Ordered Peripheral IV Insertion Adult [OM.PC] Routine Oth 12/19/18 02:04 Ordered Resuscitation Status Routine Resus Stat 12/19/18 02:04 Ordered Medication Orders Butorphanol Tartrate (Stadol) 1 mg IVPUSH Q1H PRN PRN Reason: Pain Carboprost Tromethamine (Hemabate Ds) 250 mcg IM ASDIRECTED PRN PRN Reason: Post Hemorrhage Lactated Ringer's (Ringers, Lactated) 1,000 mls @ 150 mls/hr IV ASDIRECTED JB Oxytocin/Sodium Chloride (Oxytocin 30 Unit/500 Ml-Ns) 30 unit in 500 mls @ 500 mls/hr IV TITRATE JB Tranexamic Acid 1,000 mg/ (Sodium Chloride) 110 mls @ 660 mls/hr IV ONETIME PRN PRN Reason: Bleeding Lidocaine HCl (Xylocaine 1%) 50 ml INJECT ONETIME PRN PRN Reason: Laceration repair Methylergonovine Maleate (Methergine) 0.2 mg IM ASDIRECTED PRN PRN Reason: Post Hemorrhage Misoprostol (Cytotec) 200 mcg PO ONETIME PRN PRN Reason: Post Hemorrhage Nalbuphine HCl (Nubain) 10 mg IVPUSH Q1H PRN PRN Reason: Pain (severe 7-10) Sodium Chloride (Saline Flush) 10 ml FLUSH ASDIRECTED PRN PRN Reason: Keep Vein Open Sodium Chloride (Saline Flush) 2.5 ml FLUSH ASDIRECTED PRN PRN Reason: Keep Vein Open Sodium Chloride (Normal Saline) 10 ml IV ASDIRECTED PRN PRN Reason: IV Use Sterile Water (Sterile Water For Irrigation) 1,000 ml IRR ASDIRECTED PRN PRN Reason: delivery Assessment/Plan Comment:: Termpregnancy in active labor.
[2018-12-19] MEDS ORDERED: Oxytocin/0.9 % Sodium Chloride 30 UNIT/500 ML BAG IV SCH (02:15)
[2018-12-19] MEDS ORDERED: Lactated Ringers 1,000 ML IV SCH (02:15)
[2018-12-19] MEDS ORDERED: Witch Hazel Medicated Pads 40/Jar TOP PRN (04:49)
[2018-12-19] MEDS ORDERED: Bisacodyl 10 MG Supp RECTAL PRN (04:49)
[2018-12-19] MEDS ORDERED: Ibuprofen 400 MG Tab PO PRN (04:49)
[2018-12-19] MEDS ORDERED: Docusate Sodium 100 MG Cap PO PRN (04:49)
[2018-12-19] MEDS ORDERED: Benzocaine/Menthol 20%-0.5% Spray 78 GM Cannister TOP PRN (04:49)
[2018-12-19] MEDS ORDERED: Ibuprofen 800 MG Tab PO PRN (04:49)
[2018-12-19] MEDS ORDERED: oxyCODONE 5 MG Tab PO PRN (04:49)
[2018-12-19] MEDS ORDERED: Acetaminophen 500 MG Tab PO PRN ×2 (04:49)
[2018-12-19] MEDS ORDERED: Lanolin 100% Cream 7 GM Tube TOP PRN (04:49)
--- NOTE | 2018-12-19 11:21 | OR ---
SURGEON: Chaim Mansfield MD DATE OF PROCEDURE: Ms. Molina is a 28-year-old patient. She is para 3-0-0-3, and she is followed in our practice primarily by our nurse oil pipe inspector. She had 3 previous normal spontaneous vaginal deliveries. Her care was uncomplicated. Her diabetes screen was negative. Her GBS status was negative. She is admitted in active labor. At the time of admission, she was 7 cm, complete, bulging bag of water, vertex presentation, and -2 station. The patient has progressed naturally. She did not have any epidural or any pain medication for her labor pain and she became complete-complete, and I did artificial rupture of the membrane with clear fluid. She was able to accomplish normal spontaneous vaginal delivery of a female fetus. score reported to be 8 and 9 and the weight is 750. There was no need for episiotomy. There was no laceration vaginal or labial or perineal. The placenta delivered spontaneous, complete, and intact. Estimated blood loss is 300 to 350 mL. heart rate was category 1 through the entire process of labor. The patient had no complication during the labor and delivery process. KAREN / AUDIE /[id number]
[2018-12-19] MEDS ORDERED: IBUPROFEN 100 MG/5 ML PO PRN ×2 (12:32→12:45)
[2018-12-19] MEDS ORDERED: Ibuprofen Susp 100 MG/5 ML 10 ML UD Cup PO PRN (12:34)
[2018-12-19] MEDS: Acetaminophen 325 MG/10.15 ML ML PO PRN ×2 (13:08→23:17)
--- NOTE | 2018-12-20 08:24 | PCM.DCSUM1 ---
Discharge Summary - Hospital Course Free Text/Narrative:: Discharge home with infant follow up in 6 weeks for post . Diagnosis: Stroke: No - Discharge Data Discharge Date: 12/20/18 Discharge Disposition: Home, Self-Care 01 Condition: Good - Discharge Diagnosis/Problem(s) (1) (normal spontaneous vaginal delivery) SNOMED Code(s): 92159340, [id number] ICD Code: O80 - ENCOUNTER FOR FULL-TERM UNCOMPLICATED DELIVERY Status: Acute Priority: High Current Visit: No - Patient Instructions Diet: Usual Diet as Tolerated Activity: As Tolerated, No Strenuous Activities, Rest and Relax Today Driving: May Drive Today Showering/Bathing: May Shower Notify Provider of: Fever, Increased Pain, Swelling and Redness, Nausea and/or Vomiting Other/Special Instructions: Discharge home with follow up in 6 weeks for post . - Discharge Plan *PRESCRIPTION DRUG MONITORING PROGRAM REVIEWED*: Not Applicable *COPY OF PRESCRIPTION DRUG MONITORING REPORT IN PATIENT DEBORA: Not Applicable Home Medications: Home Meds . [No Known Home Meds] 11/19/18 [History] Oxygen Therapy Mode: Room Air Referrals: [facility] [Outside] Lore Barney CNM [Mid-] - 01/30/19 1:30 pm - Discharge Summary/Plan Comment DC Time >30 min.: No - General Info Date of Service: 12/20/18 Admission Dx/Problem (Free Text: Patient Status Order with Admit Dx/Problem 12/19/18 02:04 Patient Status [ADT] Routine Admission Diagnosis/Problem Admission Diagnosis/Problem Functional Status: Reports: Pain Controlled, Tolerating Diet, Ambulating, Urinating - Review of Systems General: Reports: No Symptoms HEENT: Reports: No Symptoms Pulmonary: Reports: No Symptoms Cardiovascular: Reports: No Symptoms Gastrointestinal: Reports: No Symptoms Genitourinary: Reports: No Symptoms Musculoskeletal: Reports: No Symptoms Skin: Reports: No Symptoms Neurological: Reports: No Symptoms Psychiatric: Reports: No Symptoms - Patient Data Vitals - Most Recent: Last Vital Signs Temp 36.6 C 12/19/18 22:39 Pulse 95 12/20/18 05:18 Resp 19 12/20/18 05:18 BP 117/72 12/20/18 05:18 Pulse Ox 99 12/20/18 05:18 Weight - Most Recent: 68.039 kg Lab Results - Last 24 hrs: Laboratory Results - last 24 hr 12/20/18 Range/Units 05:50 Hgb 8.2 L (12.0-16.0) g/dL Hct 28.6 L (36.0-46.0) % Med Orders - Current: Current Medications Acetaminophen (Tylenol) 650 mg PO Q4H PRN PRN Reason: Pain Last Admin: 12/19/18 23:17 Dose: 650 mg Benzocaine/Menthol (Dermoplast Pain Relief 20%-0.5% [place]) 78 gm TOP ASDIRECTED PRN PRN Reason: Perineal Comfort Measure Bisacodyl (Dulcolax) 10 mg RECTAL ONETIME PRN PRN Reason: Constipation Butorphanol Tartrate (Stadol) 1 mg IVPUSH Q1H PRN PRN Reason: Pain Carboprost Tromethamine (Hemabate Ds) 250 mcg IM ASDIRECTED PRN PRN Reason: Post Hemorrhage Docusate Sodium (Colace) 100 mg PO BID PRN PRN Reason: Constipation Emollient Ointment (Lansinoh Hpa) 0 gm TOP ASDIRECTED PRN PRN Reason: Sore Nipples Lactated Ringer's (Ringers, Lactated) 1,000 mls @ 150 mls/hr IV ASDIRECTED JB Oxytocin/Sodium Chloride (Oxytocin 30 Unit/500 Ml-Ns) 30 unit in 500 mls @ 500 mls/hr IV TITRATE [facility] Last Admin: 12/19/18 04:43 Dose: 500 mls/hr Tranexamic Acid 1,000 mg/ (Sodium Chloride) 110 mls @ 660 mls/hr IV ONETIME PRN PRN Reason: Bleeding Ibuprofen (Motrin 100 Mg/5 Ml Susp) 800 mg PO Q6H PRN PRN Reason: Pain Last Admin: 12/20/18 06:26 Dose: 800 mg Ibuprofen (Ibuprofen) 400 mg PO Q6H PRN PRN Reason: Pain Lidocaine HCl (Xylocaine 1%) 50 ml INJECT ONETIME PRN PRN Reason: Laceration repair Methylergonovine Maleate (Methergine) 0.2 mg IM ASDIRECTED PRN PRN Reason: Post Hemorrhage Misoprostol (Cytotec) 200 mcg PO ONETIME PRN PRN Reason: Post Hemorrhage Nalbuphine HCl (Nubain) 10 mg IVPUSH Q1H PRN PRN Reason: Pain (severe 7-10) Oxycodone HCl (Oxycodone) 5 mg PO Q2H PRN PRN Reason: Pain Sodium Chloride (Saline Flush) 10 ml FLUSH ASDIRECTED PRN PRN Reason: Keep Vein Open Sodium Chloride (Saline Flush) 2.5 ml FLUSH ASDIRECTED PRN PRN Reason: Keep Vein Open Sodium Chloride (Normal Saline) 10 ml IV ASDIRECTED PRN PRN Reason: IV Use Sterile Water (Sterile Water For Irrigation) 1,000 ml IRR ASDIRECTED PRN PRN Reason: delivery Witch Jihan (Tucks) 1 pad TOP ASDIRECTED PRN PRN Reason: comfort care Discontinued Medications Acetaminophen (Tylenol Extra Strength) 500 mg PO Q4H PRN PRN Reason: Pain Acetaminophen (Tylenol Extra Strength) 1,000 mg PO Q4H PRN PRN Reason: Pain Ibuprofen (Motrin) 400 mg PO Q4H PRN PRN Reason: Pain Ibuprofen (Motrin) 800 mg PO Q6H PRN PRN Reason: Pain Ibuprofen (Ibuprofen) 400 mg PO Q4H PRN PRN Reason: Pain - Exam General: Reports: Alert, Oriented, Cooperative, No Acute Distress Lungs: Reports: Normal Respiratory Effort GI/Abdominal Exam: Soft, Non-Tender (Female) Exam: Deferred, Vaginal Bleeding Rectal (Female) Exam: Deferred Back Exam: Reports: Full Range of Motion Extremities: Normal Inspection, Normal Range of Motion, Non-Tender, No Pedal Edema Skin: Reports: Warm, Dry, Intact Wound/Incisions: Reports: Healing Well Neurological: Reports: No New Focal Deficit, Normal Speech, Normal Tone Psy/Mental Status: Reports: Alert, Normal Affect, Normal Mood
[2018-12-20 14:11] VITALS: BP 117/81
== END 2018-12-20 13:25 | disposition home or self-care (01) | DRG 560 ==
LOC: MW.OBCHECK 01:49 → MW.OB 01:50 → MW.OBCHECK 02:04 → MW.OB 02:04 → OBSVTOIN 04:42 → MW.OB 10:00
PROVIDERS: ADMIT Obstetrics & Gynecology; ATTEND Obstetrics & Gynecology
PROC: 10907ZC Drainage of Amniotic Fluid, Therapeutic from Products of Conception, Via Natural or Artificial Opening (ICD-10-PCS; principal; 2018-12-19)
PROC: 10E0XZZ Delivery of Products of Conception, External Approach (ICD-10-PCS; 2018-12-19)
DX: O80 Encounter for full-term uncomplicated delivery (principal); Z3A.39 39 weeks gestation of pregnancy; Z37.0 Single live birth
CPT/HCPCS: 36415; 59025; 59409; 85014; 85018; 85027; 86850; 86900; 86901; A9270-GY; J2590

== ENCOUNTER 2019-02-03 21:16 | Emergency (ER) | payer BC ==
[2019-02-03 21:25] VITALS: PULSE 75
[2019-02-03] MEDS ORDERED: Sodium Chloride 0.9% 2.5 ML Syringe FLUSH PRN (21:31)
[2019-02-03] MEDS ORDERED: Sodium Chloride 0.9% 10 ML Syringe FLUSH PRN (21:31)
[2019-02-03] MEDS ORDERED: Sodium Chloride 0.9% 1,000 ML IV ONE (21:33)
--- NOTE | 2019-02-03 21:36 | EDM.PDOC ---
ED HPI GENERAL MEDICAL PROBLEM - General Chief Complaint: Chest Pain Stated Complaint: CHEST PAIN Time Seen by Provider: 02/03/19 21:19 - History of Present Illness INITIAL COMMENTS - FREE TEXT/NARRATIVE: HISTORY AND PHYSICAL: History of present illness: The patient is a healthy 28 y/o female who is a 4 para 4 and just had a normal spontaneous vaginal delivery on December 19 and had her 6 week checkup with Lore Barney and presents with episodic lightheadedness and anterior chest discomfort that has been occurring about once a week for the last several weeks and did occur this evening. She says that mayuri's episode is not any different than her prior episodes and she did speak with Lore Barney about these and was told that she should drink more fluids that she is likely dehydrated. She describes the episodes as suddenly feeling very lightheaded but not dizzy and then having some anterior chest pressure and then tingling and then she sits down and the symptoms macrina. Mayuri's episode was a little different in that she had more tingling and numbness in her hands but she did not pass out or black out and has no head neck or back pain and no nausea or vomiting. She currently has no chest pain no shortness of breath no upper respiratory symptoms no abdominal complaints and she has been eating and drinking normally. She is both breast and bottle feeding and she denies any urinary complaints. She had no weakness in her extremities and there were no focal signs and everything was said generalized sense of feeling like she might pass out. She says she never wakes from sleep with these episodes and it always occurs when she is awake and doing activities. She says she has had one a week for the last several weeks. Patient has no leg pain or swelling and had no complications around and delivery. SHe is not having any vaginal bleeding. Review of systems: As per history of present illness and below otherwise all systems reviewed and negative. Past medical history: As per history of present illness and as reviewed below otherwise noncontributory. Surgical history: As per history of present illness and as reviewed below otherwise noncontributory. Social history: No reported history of drug or alcohol abuse. Family history: As per history of present illness and as reviewed below otherwise noncontributory. Physical exam: General: Well-developed well-nourished thin female who is nontoxic and vital signs are noted by me. She moves easily in the ED without any distress and is speaking clearly and easily HEENT: Atraumatic, normocephalic, pupils reactive, negative for conjunctival pallor or scleral icterus, mucous membranes moist, throat clear, neck supple, nontender, trachea midline. Lungs: Clear to auscultation, breath sounds equal bilaterally, chest nontender. Heart: S1S2, regular, negative for clicks, rubs, or JVD. Abdomen: Soft, nondistended, nontender. Negative for masses or hepatosplenomegaly. Negative for costovertebral tenderness. Pelvis: Stable nontender. Genitourinary: Deferred. Rectal: Deferred. Extremities: Atraumatic, negative for cords or calf pain. Neurovascular unremarkable. No pedal edema or leg asymmetry Neuro: Awake, alert, oriented. Cranial nerves II through XII unremarkable. Cerebellum unremarkable. Motor and sensory unremarkable throughout. Exam nonfocal. Diagnostics: EKG orthostatic vitals CBC CMP TSH troponin UA with reflex UA reflexed a urine culture Therapeutics: IV fluids She is aware of testing results and the need to continue to follow her symptoms and reasons to return to the ED. I also told her to keep a symptom journal and to notify Lore if these episodes are continuing so that she can pursue this further as an outpatient Impression: Episode of lightheadedness and chest pain, acute on chronic Definitive disposition and diagnosis as appropriate pending reevaluation and review of above. Chest Pain Score (Numeric/FACES): 2 - Related Data Allergies Allergy/AdvReac Type Severity Reaction Status Date / Time No Known Allergies Allergy Verified 02/03/19 21:20 Home Meds: Home Meds . 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 Musculoskeletal History: Reports: RA Neurological History: Reports: None Psychiatric History: Reports: None Endocrine/Metabolic History: Reports: None Hematologic History: Reports: Anemia Immunologic History: Reports: None Oncologic (Cancer) History: Reports: None Dermatologic History: Reports: None - Infectious Disease History Infectious Disease History: Reports: Chicken Pox - Past Surgical History Head Surgeries/Procedures: Reports: None HEENT Surgical History: Reports: None Female Surgical History: Reports: None Social & Family History - Family History Family Medical History: Noncontributory HEENT: Reports: Impaired Vision Respiratory: Reports: Asthma : Reports: Renal Calculus OBGYN: Reports: Musculoskeletal: Reports: Fibromyalgia, Osteoarthritis Endocrine/Metabolic: Reports: Diabetes, type II Other Endocrine/Metabolic Family History: Patient's grandmother and sister have had thyroidectomy surgery. Oncologic: Reports: Lung - Tobacco Use Smoking Status *Q: Former Smoker Used Tobacco, but Quit: Yes Month/Year Tobacco Last Used: 2014 - Caffeine Use Caffeine Use: Reports: Soda - Recreational Drug Use Recreational Drug Use: No ED ROS GENERAL - Review of Systems Review Of Systems: ROS reveals no pertinent complaints other than HPI. ED EXAM, GENERAL - Physical Exam Exam: See Below (See dictation) Course - Vital Signs Last Recorded V/S: Last Vital Signs Temp 36.1 C 02/03/19 21:20 Pulse 75 02/03/19 21:20 Resp 16 02/03/19 21:20 BP 134/80 02/03/19 21:20 Pulse Ox 100 02/03/19 21:20 Orthostatic Blood Pressure [ 114/78 Standing] Orthostatic Blood Pressure [ 131/71 Sitting] Orthostatic Blood Pressure [ 118/71 Supine] - Orders/Labs/Meds Orders: Active Orders 24 hr Category Date Time Status EKG Documentation Completion [RC] STAT Care 02/03/19 21:21 Active Orthostatic Vital Signs [RC] ASDIRECTED Care 02/03/19 21:31 Active CULTURE URINE [RM] Stat Lab 02/03/19 22:25 Received Sodium Chloride 0.9% [Saline Flush] Med 02/03/19 21:31 Active 10 ml FLUSH ASDIRECTED PRN Sodium Chloride 0.9% [Saline Flush] Med 02/03/19 21:31 Active 2.5 ml FLUSH ASDIRECTED PRN Saline Lock Insert [OM.PC] Stat Oth 02/03/19 21:31 Ordered Medication Orders Sodium Chloride (Saline Flush) 10 ml FLUSH ASDIRECTED PRN PRN Reason: Keep Vein Open Sodium Chloride (Saline Flush) 2.5 ml FLUSH ASDIRECTED PRN PRN Reason: Keep Vein Open Labs: Laboratory Tests 02/03/19 02/03/19 02/03/19 Range/Units 21:42 21:42 22:25 WBC 6.55 (4.0-11.0) K/uL RBC 5.13 (4.30-5.90) M/uL Hgb 11.7 L (12.0-16.0) g/dL Hct 37.7 (36.0-46.0) % MCV 73.5 L (80.0-98.0) fL MCH 22.8 L (27.0-32.0) pg MCHC 31.0 (31.0-37.0) g/dL RDW Std Deviation 55.9 (28.0-62.0) fl RDW Coeff of Oneal 21 H (11.0-15.0) % Plt Count 246 (150-400) K/uL MPV 9.50 (7.40-12.00) fL Neut % (Auto) 51.1 (48.0-80.0) % Lymph % (Auto) 39.4 (16.0-40.0) % Dooly % (Auto) 6.3 (0.0-15.0) % Eos % (Auto) 2.9 (0.0-7.0) % Baso % (Auto) 0.3 (0.0-1.5) % Neut # (Auto) 3.4 (1.4-5.7) K/uL Lymph # (Auto) 2.6 H (0.6-2.4) K/uL Dooly # (Auto) 0.4 (0.0-0.8) K/uL Eos # (Auto) 0.2 (0.0-0.7) K/uL Baso # (Auto) 0.0 (0.0-0.1) K/uL Nucleated RBC % 0.0 /100WBC Nucleated RBCs # 0 K/uL Sodium 141 (136-145) mmol/L Potassium 3.4 L (3.5-5.1) mmol/L Chloride 106 (98-107) mmol/L Carbon Dioxide 23.4 (21.0-32.0) mmol/L BUN 18 (7.0-18.0) mg/dL Creatinine 0.8 (0.6-1.0) mg/dL Est Cr Clr Drug Dosing 88.15 mL/min Estimated GFR (MDRD) > 60.0 ml/min Glucose 113 H (74-106) mg/dL Calcium 8.7 (8.5-10.1) mg/dL Total Bilirubin 0.5 (0.2-1.0) mg/dL AST 15 (15-37) IU/L ALT 22 (14-63) IU/L Alkaline Phosphatase 93 (46-116) U/L Troponin I < 0.050 (0.000-0.056) ng/mL Total Protein 7.8 (6.4-8.2) g/dL Albumin 4.0 (3.4-5.0) g/dL Globulin 3.8 (2.6-4.0) g/dL Albumin/Globulin Ratio 1.1 (0.9-1.6) TSH 3rd Generation 3.73 (0.36-3.74) uIU/mL Urine Color YELLOW Urine Appearance SLT CLOUDY Urine pH 6.0 (5.0-8.0) Ur Specific Patterson 1.015 (1.001-1.035) Urine Protein NEGATIVE (NEGATIVE) mg/dL Urine Glucose (UA) NEGATIVE (NEGATIVE) mg/dL Urine Ketones NEGATIVE (NEGATIVE) mg/dL Urine Occult Blood NEGATIVE (NEGATIVE) Urine Nitrite NEGATIVE (NEGATIVE) Urine Bilirubin NEGATIVE (NEGATIVE) Urine Urobilinogen 0.2 (<2.0) EU/dL Ur Leukocyte Esterase TRACE H (NEGATIVE) Urine RBC 0-1 (0-2/HPF) Urine WBC 1-3 (0-5/HPF) Ur Epithelial Cells MODERATE (NONE-FEW) Urine Bacteria RARE (NEGATIVE) Urine Mucus LIGHT (NONE-MOD) Meds: Medications Generic Name Dose Route Start Last Admin Trade Name Freq PRN Reason Stop Dose Admin Sodium Chloride 10 ml 02/03/19 21:31 Saline Flush FLUSH ASDIRECTED PRN Keep Vein Open Sodium Chloride 2.5 ml 02/03/19 21:31 Saline Flush FLUSH ASDIRECTED PRN Keep Vein Open Discontinued Medications Generic Name Dose Route Start Last Admin Trade Name Freq PRN Reason Stop Dose Admin Sodium Chloride 1,000 mls @ 999 mls/hr 02/03/19 21:33 02/03/19 21:44 Normal Saline IV 02/03/19 22:33 999 mls/hr STAT ONE Administration Departure - Departure Time of Disposition: 22:58 Disposition: Home, Self-Care 01 Condition: Good Clinical Impression: Lightheadedness, Atypical chest pain - Discharge Information Referrals: PCP,None [Primary Care Provider] - Forms: ED Department Discharge Additional Instructions: The following information is given to patients seen in the emergency department who are being discharged to home. This information is to outline your options for follow-up care. We provide all patients seen in our emergency department with a follow-up referral. The need for follow-up, as well as the timing and circumstances, are variable depending upon the specifics of your emergency department visit. If you don't have a primary care physician on staff, we will provide you with a referral. We always advise you to contact your personal physician following an emergency department visit to inform them of the circumstance of the visit and for follow-up with them and/or the need for any referrals to a consulting specialist. The emergency department will also refer you to a specialist when appropriate. This referral assures that you have the opportunity for followup care with a specialist. All of these measure are taken in an effort to provide you with optimal care, which includes your followup. Under all circumstances we always encourage you to contact your private physician who remains a resource for coordinating your care. When calling for followup care, please make the office aware that this follow-up is from your recent emergency room visit. If for any reason you are refused follow-up, please contact the [facility] emergency department at and ask to speak to the emergency department charge nurse. [facility] [address] [place] [id number] Push hydration and do all body position changes as slowly as possible taking a few extra sections to do this. Please try to eat small frequent meals and continue to monitor your symptoms writing down when you're having these episodes and the characteristics of them so that your provider in the clinic in follow-up with more testing as needed. Return to ER as needed and as discussed - My Orders Last 24 Hours: My Active Orders 02/03/19 21:21 EKG Documentation Completion [RC] STAT 02/03/19 21:31 Orthostatic Vital Signs [RC] ASDIRECTED Sodium Chloride 0.9% [Saline Flush] 10 ml FLUSH ASDIRECTED PRN Sodium Chloride 0.9% [Saline Flush] 2.5 ml FLUSH ASDIRECTED PRN Saline Lock Insert [OM.PC] Stat 02/03/19 22:25 CULTURE URINE [RM] Stat - Assessment/Plan Last 24 Hours: My Active Orders 02/03/19 21:21 EKG Documentation Completion [RC] STAT 02/03/19 21:31 Orthostatic Vital Signs [RC] ASDIRECTED Sodium Chloride 0.9% [Saline Flush] 10 ml FLUSH ASDIRECTED PRN Sodium Chloride 0.9% [Saline Flush] 2.5 ml FLUSH ASDIRECTED PRN Saline Lock Insert [OM.PC] Stat 02/03/19 22:25 CULTURE URINE [RM] Stat
[2019-02-03 22:21] LABS: BLOOD UREA NITROGEN,BUN 18 mg/dL (7.0-18.0); CARBON DIOXIDE,CO2 23.4 mmol/L (21.0-32.0); CHLORIDE,CL 106 mmol/L (98-107); GLUCOSE RANDOM 113 mg/dL (74-106); POTASSIUM,K 3.4 mmol/L (3.5-5.1); SODIUM,NA 141 mmol/L (136-145)
[2019-02-03 23:30] VITALS: BP 128/80
== END 2019-02-03 23:10 | disposition home or self-care (01) ==
LOC: MW.ED 21:16
DX: R07.89 Other chest pain (principal); R42 Dizziness and giddiness; Z87.891 Personal history of nicotine dependence
CPT/HCPCS: 36415; 80053; 81001; 84443; 84484; 85025; 87086; 93005; 96360; 99285; J7040

== ENCOUNTER 2019-04-06 17:59 | Emergency (ER) | payer BC ==
[2019-04-06] MEDS ORDERED: diphenhydrAMINE 50 MG/ML SDV IVPUSH ONE (18:06)
[2019-04-06] MEDS ORDERED: Sodium Chloride 0.9% 1,000 ML IV ONE (18:06)
[2019-04-06] MEDS: methylPREDNISolone Sodium Succinate 125 MG/2 ML SDV IVPUSH ONE ×2 (18:14→18:28)
--- NOTE | 2019-04-06 18:20 | EDM.PDOC ---
ED HPI GENERAL MEDICAL PROBLEM - General Chief Complaint: Allergic Reaction Stated Complaint: ALLERGIC REACTION Time Seen by Provider: 04/06/19 18:07 Source of Information: Reports: Patient History Limitations: Reports: No Limitations - History of Present Illness INITIAL COMMENTS - FREE TEXT/NARRATIVE: HISTORY AND PHYSICAL: History of present illness: Patient is a 28 year old female who presents to the ED with concerns of an allergic reaction. She states she started having flu-like symptoms over the past 1-2 weeks and her PCP wrote her a script for Julia-flu (wasn't formally tested). She took her first dose today, and shortly after felt SOB and like her "throat was tight". She denies any voice changes, difficulty breathing or difficulty swallowing. Patient denies any fever, chills, headache, change in vision, syncope or near syncope. Denies any chest pain, back pain, shortness of breath or cough. Denies any abdominal pain, nausea, vomiting, diarrhea, constipation or dysuria. Has not noted any blood in urine or stool. Patient has been eating and drinking appropriately. Review of systems: As per history of present illness and below otherwise all systems reviewed and negative. Past medical history: As per history of present illness and as reviewed below otherwise noncontributory. Surgical history: As per history of present illness and as reviewed below otherwise noncontributory. Social history: See social history for further information Family history: As per history of present illness and as reviewed below otherwise noncontributory. Physical exam: General: Well developed and well nourished 28 year old female. Alert and orientated. Anxious, nontoxic appearing and in no acute distress. VSS. HEENT: Atraumatic, normocephalic, pupils equal and reactive bilaterally, negative for conjunctival pallor or scleral icterus, mucous membranes moist, TMs normal bilaterally, throat clear, neck supple, nontender, trachea midline. No drooling or trismus noted. No meningeal signs. No hot potato voice noted. Lungs: Clear to auscultation, breath sounds equal bilaterally, chest nontender. Heart: S1S2, regular rate and rhythm without overt murmur Abdomen: Soft, nondistended, nontender. Negative for masses or hepatosplenomegaly. Negative for costovertebral tenderness. Pelvis: Stable nontender. Skin: Intact, warm, dry. No lesions or rashes noted. Extremities: Atraumatic, moves all extremities per self without difficulty or deficits, negative for cords or calf pain. Neurovascular unremarkable. Neuro: Awake, alert, oriented. Cranial nerves II through XII unremarkable. Cerebellum unremarkable. Motor and sensory unremarkable throughout. Exam nonfocal. Notes: Patient declined the Solu-Medrol. Stating her symptoms improved immediately after giving the Benadryl. VSS. Supportive care measures were reviewed and discussed. Voices understanding and is agreeable to plan of care. Denies any further questions or concerns at this time. Diagnostics: None Therapeutics: IV fluids, benadryl, solu-medrol (declined) Prescription: None Impression: Allergic reaction Anxiety about health Plan: 1. Stop the Tamiflu 2. Please routinely take Benadryl (H1 Tanja) and Pepcid (H2 Tanja) over the next several days. H1 and H2 antihistamines in combination are more effective in alleviating symptoms. 3. Follow up with your primary care as we discussed. Return to the ED as needed and as discussed. Definitive disposition and diagnosis as appropriate pending reevaluation and review of above. - Related Data Allergies Allergy/AdvReac Type Severity Reaction Status Date / Time No Known Allergies Allergy Verified 04/06/19 18:08 Home Meds: Home Meds . 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 Musculoskeletal History: Reports: RA Neurological History: Reports: None Psychiatric History: Reports: None Endocrine/Metabolic History: Reports: None Hematologic History: Reports: Anemia Immunologic History: Reports: None Oncologic (Cancer) History: Reports: None Dermatologic History: Reports: None - Infectious Disease History Infectious Disease History: Reports: Chicken Pox - Past Surgical History Head Surgeries/Procedures: Reports: None HEENT Surgical History: Reports: None Female Surgical History: Reports: None Social & Family History - Family History Family Medical History: Noncontributory HEENT: Reports: Impaired Vision Respiratory: Reports: Asthma : Reports: Renal Calculus OBGYN: Reports: Musculoskeletal: Reports: Fibromyalgia, Osteoarthritis Endocrine/Metabolic: Reports: Diabetes, type II Other Endocrine/Metabolic Family History: Patient's grandmother and sister have had thyroidectomy surgery. Oncologic: Reports: Lung - Caffeine Use Caffeine Use: Reports: Soda ED ROS ALLERGIC REACTION - Review of Systems Review Of Systems: Comprehensive ROS is negative, except as noted in HPI. ED EXAM GENERAL NO PERIP PULSE - Physical Exam Exam: See Below (See dictation) Course - Vital Signs Last Recorded V/S: Last Vital Signs Temp 97.9 F 04/06/19 19:00 Pulse 94 04/06/19 19:00 Resp 18 04/06/19 19:00 BP 134/78 04/06/19 19:00 Pulse Ox 99 04/06/19 19:00 - Orders/Labs/Meds Meds: Medications Discontinued Medications Generic Name Dose Route Start Last Admin Trade Name Freq PRN Reason Stop Dose Admin Diphenhydramine HCl 50 mg 04/06/19 18:06 04/06/19 18:14 Benadryl IVPUSH 04/06/19 18:07 50 mg ONETIME ONE Administration Sodium Chloride 1,000 mls @ 999 mls/hr 04/06/19 18:06 04/06/19 18:14 Normal Saline IV 04/06/19 19:06 999 mls/hr STAT ONE Administration Methylprednisolone Sodium Succinate 125 mg 04/06/19 18:06 04/06/19 18:28 Solu-Medrol IVPUSH 04/06/19 18:07 Not Given ONETIME ONE Departure - Departure Time of Disposition: 18:30 Disposition: Home, Self-Care 01 Clinical Impression: Anxiety about health Allergic reaction Qualifiers: Encounter type: initial encounter Qualified Code(s): T78.40XA - Allergy, unspecified, initial encounter - Discharge Information Instructions: Allergies, Adult Referrals: Galindo Cueva MD [Primary Care Provider] - Additional Instructions: The following information is given to patients seen in the emergency department who are being discharged to home. This information is to outline your options for follow-up care. We provide all patients seen in our emergency department with a follow-up referral. The need for follow-up, as well as the timing and circumstances, are variable depending upon the specifics of your emergency department visit. If you don't have a primary care physician on staff, we will provide you with a referral. We always advise you to contact your personal physician following an emergency department visit to inform them of the circumstance of the visit and for follow-up with them and/or the need for any referrals to a consulting specialist. The emergency department will also refer you to a specialist when appropriate. This referral assures that you have the opportunity for follow-up care with a specialist. All of these measure are taken in an effort to provide you with optimal care, which includes your follow-up. Under all circumstances we always encourage you to contact your private physician who remains a resource for coordinating your care. When calling for follow-up care, please make the office aware that this follow-up is from your recent emergency room visit. If for any reason you are refused follow-up, please contact the [facility] Emergency Department at and asked to speak to the emergency department charge nurse. [facility] [address] [place] [address] [place] [address] 1. Stop the Tamiflu 2. Please routinely take Benadryl (H1 Tanja) and Pepcid (H2 Tanja) over the next several days. H1 and H2 antihistamines in combination are more effective in alleviating symptoms. 3. Follow up with your primary care as we discussed. Return to the ED as needed and as discussed. Sepsis Event Note - Focused Exam Vital Signs: Vital Signs Temp Pulse Resp BP Pulse Ox 04/06/19 19:00 97.9 F 94 18 134/78 99 04/06/19 18:16 90 16 138/86 99 04/06/19 18:05 97.2 F 101 H 20 131/80 99 Date Exam was Performed: 04/06/19 Time Exam was Performed: 19:06
[2019-04-06 20:03] VITALS: BP 117/71; PULSE 84
== END 2019-04-06 20:03 | disposition home or self-care (01) ==
LOC: MW.ED 17:59
DX: R06.02 Shortness of breath (principal); T37.5X5A Adverse effect of antiviral drugs, initial encounter; F41.8 Other specified anxiety disorders
CPT/HCPCS: 96361; 96374; 99284; J1200; J7030; J2930

== ENCOUNTER 2022-06-29 19:39 | Emergency (ER) | payer BC | END 2022-06-29 21:52 | disposition left against medical advice (07) | LOC: MW.ED 19:39 | DX: M79.602 Pain in left arm (principal); Z53.21 Procedure and treatment not carried out due to patient leaving prior to being seen by health care provider ==

== ENCOUNTER 2023-08-10 00:10 | Inpatient (IN) | payer BC ==
[2023-08-10] MEDS: Lactated Ringers 1,000 ML IV SCH (00:45)
[2023-08-10] MEDS ORDERED: Water For Irrigation,Sterile 1,000 ML Container IRR PRN (01:32)
[2023-08-10] MEDS ORDERED: Ondansetron 4 MG/2 ML SDV IVPUSH PRN (01:32)
[2023-08-10] MEDS ORDERED: Sodium Chloride 0.9% 10 ML Syringe FLUSH PRN (01:32)
[2023-08-10] MEDS ORDERED: Carboprost Tromethamine 250 MCG/1 mL Vial IM PRN (01:32)
[2023-08-10] MEDS ORDERED: Lidocaine 1% 50 ML MDV INJECT PRN (01:32)
[2023-08-10] MEDS ORDERED: Terbutaline 1 MG/ML SDV SUBCUT PRN (01:32)
[2023-08-10] MEDS ORDERED: Sodium Chloride 0.9% 20 ML SDV IV PRN (01:32)
[2023-08-10] MEDS ORDERED: Misoprostol 200 MCG Tab PO PRN (01:32)
[2023-08-10] MEDS ORDERED: Tranexamic Acid IN NACL,ISO-OS 1,000 MG in Premix Bag 1 BAG IV PRN (01:32)
[2023-08-10] MEDS ORDERED: Methylergonovine 0.2 MG/1 ML Amp IM PRN (01:32)
[2023-08-10] MEDS ORDERED: Sodium Chloride 0.9% 2.5 ML Syringe FLUSH PRN (01:32)
[2023-08-10] MEDS ORDERED: Nalbuphine 10 MG/0.5 ML Syringe IVPUSH PRN (01:36)
[2023-08-10] MEDS ORDERED: Oxytocin/0.9 % Sodium Chloride 30 UNIT/500 ML BAG IV SCH (01:45)
[2023-08-10 01:55] LABS: HEMATOCRIT 29.1 % (37.0-47.0); MEAN CORPUSCULAR HEMOGLOBIN 22.9 pg (28.0-32.0); MEAN CORPUSCULAR HGB CONC 30.9 g/dL (32.0-36.0); MEAN PLATELET VOLUME 10.9 fL (9.4-12.3); PLATELET COUNT,PLT 268 K/uL (150-400); RED BLOOD CELL COUNT 3.93 M/uL (4.10-5.30); WHITE BLOOD CELL COUNT,WBC 9.73 K/uL (3.9-11.3)
[2023-08-10] MEDS: Misoprostol 25 MCG (1/4 of 100 MCG) Tab PO PRN (02:12)
[2023-08-10] MEDS ORDERED: Misoprostol 50 MCG (1/2 of 100 MCG) Tab VAG PRN (11:15)
[2023-08-10] MEDS ORDERED: Misoprostol 25 MCG (1/4 of 100 MCG) Tab PO PRN (11:15)
[2023-08-10] MEDS: Misoprostol 25 MCG (1/4 of 100 MCG) Tab VAG PRN (11:36)
[2023-08-10] MEDS: Oxytocin/0.9 % Sodium Chloride 30 UNIT/500 ML BAG IV SCH (16:57)
[2023-08-10] MEDS: Ketorolac 30 MG/ML SDV IVPUSH ONE (17:07)
[2023-08-10] MEDS ORDERED: Ibuprofen 800 MG Tab PO PRN (19:03)
[2023-08-10] MEDS ORDERED: Witch Hazel Medicated Pads 40/Jar TOP PRN (19:03)
[2023-08-10] MEDS ORDERED: Lanolin 100% Cream 7 GM Tube TOP PRN (19:03)
[2023-08-10] MEDS ORDERED: Docusate Sodium 100 MG Cap PO PRN (19:03)
[2023-08-10] MEDS ORDERED: Benzocaine/Menthol 20%-0.5% Spray 78 GM Cannister TOP PRN (19:03)
[2023-08-11 05:57] LABS: HEMATOCRIT 24.3 % (37.0-47.0); HEMOGLOBIN 7.4 g/dL (12.0-16.0)
[2023-08-11] MEDS: Acetaminophen 500 MG Tab PO PRN (13:31)
[2023-08-12 14:17] VITALS: BP 127/79; PULSE 79
== END 2023-08-12 13:48 | disposition home or self-care (01) | DRG 560 ==
LOC: MW.OB 00:10 → OBSVTOIN 16:55 → MW.OB 21:30
PROVIDERS: ADMIT Obstetrics & Gynecology; ATTEND Obstetrics & Gynecology Obstetrics
PROC: 10E0XZZ Delivery of Products of Conception, External Approach (ICD-10-PCS; principal; 2023-08-10)
PROC: 3E0P7VZ Introduction of Hormone into Female Reproductive, Via Natural or Artificial Opening (ICD-10-PCS; 2023-08-10)
DX: O26.643 Intrahepatic cholestasis of pregnancy, third trimester (principal); Z37.0 Single live birth; E78.79 Other disorders of bile acid and cholesterol metabolism; K76.89 Other specified diseases of liver; Z3A.37 37 weeks gestation of pregnancy; Z88.8 Allergy status to other drugs, medicaments and biological substances
CPT/HCPCS: 36415; 59025; 59409; 85014; 85018; 85027; 86592; 86850; 86900; 86901; A9270-GY; J1885; J2590; J7120

== ENCOUNTER 2024-10-28 14:54 | Emergency (ER) | payer BC ==
[2024-10-28 15:53] VITALS: BP 115/74; PULSE 91
== END 2024-10-28 15:50 | disposition home or self-care (01) ==
LOC: MW.ED 14:54
DX: O99.712 Diseases of the skin and subcutaneous tissue complicating pregnancy, second trimester (principal); L50.0 Allergic urticaria; Z88.1 Allergy status to other antibiotic agents; Z3A.17 17 weeks gestation of pregnancy
CPT/HCPCS: 99283

== ENCOUNTER 2025-03-21 18:05 | Inpatient (IN) | payer BC ==
[2025-03-21 19:33] LABS: APPEARANCE,URINE SLT CLOUDY; GLUCOSE,URINE NEGATIVE (NEGATIVE); OCCULT BLOOD,URINE NEGATIVE (NEGATIVE)
[2025-03-21 19:35] LABS: BASOPHILS ABSOLUTE AUTO 0.03 K/uL (0.00-0.20); BASOPHILS PERCENT AUTO 0.3 % (0.0-1.0); EOSINOPHILS ABSOLUTE AUTO 0.10 K/uL (0.00-0.45); EOSINOPHILS PERCENT AUTO 1.0 % (0.0-6.0); IMMATURE GRAN ABSOLUTE AUTO 0.16 K/uL (0.00-0.05); IMMATURE GRAN PERCENT AUTO 1.6 % (0.0-0.4); LYMPHOCYTES ABSOLUTE AUTO 2.36 K/uL (1.00-4.80); LYMPHOCYTES PERCENT AUTO 24.0 % (24.0-44.0); MEAN PLATELET VOLUME 10.8 fL (9.4-12.3); MONOCYTES ABSOLUTE AUTO 0.51 K/uL (0.00-0.80); MONOCYTES PERCENT AUTO 5.2 % (0.0-8.0); NEUTROPHILS ABSOLUTE AUTO 6.67 K/uL (1.80-7.70); NEUTROPHILS PERCENT AUTO 67.9 % (41.0-71.0); NRBC ABSOLUTE 0.02 K/uL (0.00-0.02); NRBC PERCENT 0.2 /100WBC (0.0-0.2); PLATELET COUNT,PLT 194 K/uL (150-400); RED BLOOD CELL COUNT 4.16 M/uL (4.10-5.30); WHITE BLOOD CELL COUNT,WBC 9.83 K/uL (3.9-11.3)
[2025-03-21 19:40] LABS: SQUAMOUS EPITHELIAL CELLS,UR MODERATE
[2025-03-21 19:58] LABS: CREATININE,URINE RAND 87.7 mg/dL; PROTEIN CREATININE RATIO,URINE 0.2; PROTEIN,URINE RANDOM 16.2 mg/dL (<11.9)
[2025-03-21 20:02] LABS: ALANINE AMINOTRANSFERASE,ALT 12 IU/L (14-63); ASPARTATE AMNIOTRANSFERASE,AST 14 IU/L (15-37); BILIRUBIN TOTAL 0.2 mg/dL (0.2-1.0); BLOOD UREA NITROGEN,BUN 13 mg/dL (7.0-18.0); CARBON DIOXIDE,CO2 22.9 mmol/L (21.0-32.0); CHLORIDE,CL 104 mmol/L (98-107); CREATININE 0.7 mg/dL (0.6-1.0); GLUCOSE RANDOM 87 mg/dL (74-106); POTASSIUM,K 3.6 mmol/L (3.5-5.1); PROTEIN TOTAL,TP 6.5 g/dL (6.4-8.2); SODIUM,NA 139 mmol/L (136-145)
[2025-03-21 20:04] LABS: A/G RATIO 0.6 (0.9-1.6); ESTIMATED GFR 118 mL/min (>60)
[2025-03-21] MEDS ORDERED: Carboprost Tromethamine 250 MCG/1 mL Vial IM PRN (21:46)
[2025-03-21] MEDS ORDERED: Terbutaline 1 MG/ML SDV SUBCUT PRN (21:46)
[2025-03-21] MEDS ORDERED: Sodium Chloride 0.9% 2.5 ML Syringe FLUSH PRN (21:46)
[2025-03-21] MEDS ORDERED: Ondansetron 4 MG/2 ML SDV IVPUSH PRN (21:46)
[2025-03-21] MEDS ORDERED: Butorphanol 1 MG/ML SDV IVPUSH PRN (21:46)
[2025-03-21] MEDS ORDERED: Water For Irrigation,Sterile 1,000 ML Container IRR PRN (21:46)
[2025-03-21] MEDS ORDERED: Sodium Chloride 0.9% 10 ML Syringe FLUSH PRN (21:46)
[2025-03-21] MEDS ORDERED: Oxytocin/0.9 % Sodium Chloride 30 UNIT/500 ML BAG IV SCH (22:00)
[2025-03-21] MEDS: Lactated Ringers 1,000 ML IV SCH (23:15)
[2025-03-21] MEDS ORDERED: Ropivacaine HCl/PF 0 ML ONE (23:53)
[2025-03-21] MEDS: Oxytocin/0.9 % Sodium Chloride 30 UNIT/500 ML BAG IV SCH (23:58)
[2025-03-22] MEDS ORDERED: Benzocaine/Menthol 20%-0.5% Spray 78 GM Cannister TOP PRN (00:18)
[2025-03-22] MEDS ORDERED: Lanolin 100% Cream 7 GM Tube TOP PRN (00:18)
[2025-03-22] MEDS ORDERED: Aluminum Hydroxide/Magnesium Hydroxide/Simethicone Susp 30 ML Cup PO PRN (00:18)
[2025-03-22] MEDS ORDERED: Witch Hazel Medicated Pads 40/Jar TOP PRN (00:18)
[2025-03-22 00:54] LABS: PH,UMBILICAL ARTERIAL 7.33 (7.18-7.38); PH,UMBILICAL VENOUS 7.35 (7.25-7.45)
[2025-03-22 05:35] LABS: BASOPHILS ABSOLUTE AUTO 0.05 K/uL (0.00-0.20); BASOPHILS PERCENT AUTO 0.3 % (0.0-1.0); EOSINOPHILS ABSOLUTE AUTO 0.07 K/uL (0.00-0.45); EOSINOPHILS PERCENT AUTO 0.5 % (0.0-6.0); IMMATURE GRAN ABSOLUTE AUTO 0.21 K/uL (0.00-0.05); IMMATURE GRAN PERCENT AUTO 1.4 % (0.0-0.4); LYMPHOCYTES ABSOLUTE AUTO 3.09 K/uL (1.00-4.80); LYMPHOCYTES PERCENT AUTO 20.7 % (24.0-44.0); MEAN PLATELET VOLUME 11.1 fL (9.4-12.3); MONOCYTES ABSOLUTE AUTO 0.94 K/uL (0.00-0.80); MONOCYTES PERCENT AUTO 6.3 % (0.0-8.0); NEUTROPHILS ABSOLUTE AUTO 10.59 K/uL (1.80-7.70); NEUTROPHILS PERCENT AUTO 70.8 % (41.0-71.0); NRBC ABSOLUTE 0.03 K/uL (0.00-0.02); NRBC PERCENT 0.2 /100WBC (0.0-0.2); PLATELET COUNT,PLT 236 K/uL (150-400); RED BLOOD CELL COUNT 4.20 M/uL (4.10-5.30); WHITE BLOOD CELL COUNT,WBC 14.95 K/uL (3.9-11.3)
[2025-03-22 06:02] LABS: IRON,FE 45.0 ug/dL (50-175); PERCENT FE SATURATION 7.89 % (20-55)
[2025-03-22 06:36] LABS: A/G RATIO 0.6 (0.9-1.6); ALANINE AMINOTRANSFERASE,ALT 15.0 IU/L (14-63); ASPARTATE AMNIOTRANSFERASE,AST 19.0 IU/L (15-37); BILIRUBIN TOTAL 0.3 mg/dL (0.2-1.0); BLOOD UREA NITROGEN,BUN 12.0 mg/dL (7.0-18.0); CARBON DIOXIDE,CO2 22.2 mmol/L (21.0-32.0); CHLORIDE,CL 105.0 mmol/L (98-107); CREATININE 0.7 mg/dL (0.6-1.0); EST CRCL DRUG DOSING (CG) 95.44 mL/min; GLUCOSE RANDOM 78.0 mg/dL (74-106); POTASSIUM,K 4.0 mmol/L (3.5-5.1); PROTEIN TOTAL,TP 6.3 g/dL (6.4-8.2); SODIUM,NA 138.0 mmol/L (136-145)
[2025-03-22 06:39] LABS: ESTIMATED GFR 118.0 mL/min (>60)
[2025-03-22 07:05] LABS: FOLIC ACID 18.1 ng/mL (8.60-58.90)
[2025-03-22] MEDS: dexmedeTOMIDine HCl 200 MCG/2 ML SDV ONE (07:33)
[2025-03-22] MEDS ORDERED: Sodium Ferric Gluconate Cmplex 125 MG in Sodium Chloride 0.9% 100 ML IV SCH (09:00)
[2025-03-23 05:27] LABS: MEAN PLATELET VOLUME 10.5 fL (9.4-12.3); NRBC ABSOLUTE 0.00 K/uL (0.00-0.02); NRBC PERCENT 0.0 /100WBC (0.0-0.2); PLATELET COUNT,PLT 165 K/uL (150-400); RED BLOOD CELL COUNT 3.98 M/uL (4.10-5.30); WHITE BLOOD CELL COUNT,WBC 10.02 K/uL (3.9-11.3)
[2025-03-23 11:53] VITALS: BP 125/74; PULSE 75
[2025-03-24] MEDS ORDERED: Prenatal Multivitamin with Calcium/Folic Acid/Iron Tab PO SCH (09:00)
== END 2025-03-23 12:40 | disposition home or self-care (01) | DRG 560 ==
LOC: MW.OB 18:05 → MW.OBCHECK 18:05 → MW.OB 21:46 → OBSVTOIN 23:51 → MW.OB 03-22 03:30
PROVIDERS: ADMIT Obstetrics & Gynecology; ATTEND Obstetrics & Gynecology Obstetrics
PROC: 10E0XZZ Delivery of Products of Conception, External Approach (ICD-10-PCS; principal; 2025-03-21)
DX: O13.4 Gestational [pregnancy-induced] hypertension without significant proteinuria, complicating childbirth (principal); Z3A.37 37 weeks gestation of pregnancy; Z37.0 Single live birth; O99.02 Anemia complicating childbirth; D50.9 Iron deficiency anemia, unspecified; M06.9 Rheumatoid arthritis, unspecified
CPT/HCPCS: 36415; 59025; 59409; 76815; 76815-26; 80053; 81001; 82570; 82607; 82728; 82746; 82803; 83550; 84156; 85025; 85027; 86592; 86850; 86900; 86901; A9270-GY; J2590; J7120